=== PATIENT | female | born 2000 | race Caucasian/White ===

== ENCOUNTER 2021-01-27 19:34 | Emergency (ER) | payer OTHER, MEDICAID, SELFPAY ==
[2021-01-27 19:40] VITALS: PULSE 79; RESP 12; TEMP 36.4; O2SAT 98; BMI 25.7
--- NOTE | 2021-01-27 19:44 | DI.RAD.S_ITS ---
PROCEDURE: XR TOE RT MIN 2V INDICATIONS: dropped vaccum on toe TECHNIQUE: 3 views of the right 2nd toe(s) acquired. COMPARISON: None. FINDINGS: Bones: No fractures or dislocations. No suspicious bony lesions. Soft tissues: No suspicious soft tissue densities. IMPRESSION: No fracture. No osseous lesion. If symptoms and/or clinical suspicion for pathology persists, further assessment with repeat radiographs (7-10 days) or advanced imaging (e.g. CT, MRI or bone scan) should be considered. Dictated by: Mariama Salmeron MD, PhD on 01/27/2021 at 20:03 Approved by: Mariama Salmeron MD, PhD on 01/27/2021 at 20:03
--- NOTE | 2021-01-27 20:33 | ED_ITS ---
HPI - Extremity Injury (Lower) General Chief Complaint: Extremity Injury, Lower Stated Complaint: RIGHT FOOT INJURY Time Seen by Provider: 01/27/21 20:33 Source: patient Mode of arrival: Ambulatory History of Present Illness HPI Narrative: Otherwise healthy 20-year-old woman dropped her vacuum mandrel cleaner on her right 2nd toe earlier today. There is a minor abrasion to the area with some ecchymosis and significant pain. She comes in for further evaluation Related Data Allergies Allergy/AdvReac Type Severity Reaction Status Date / Time No Known Drug Allergies Allergy Verified 01/27/21 19:44 Review of Systems Review of Systems Narrative: Remainder of complete review of systems is otherwise unremarkable except for that included in the HPI. Patient History Social History Smoking Status: Never smoker Smoking Status: Never smoker Substance Use Type: does not use Exam Narrative Exam Narrative: General: Alert appropriate in no acute distress Respiratory: Able to speak in full sentences, no obvious respiratory distress Skin: No obvious rashes, warm and dry Neurologic: Grossly intact no obvious asymmetries or abnormalities Psych: appropriate insight and affect, cooperative Extremity: Right 2nd toe with a minor abrasion over the nail bed nail base itself is unremarkable there is no obvious deformity, she is developing some ecchymosis around the area of injury Initial Vital Signs Initial Vital Signs: Vital Signs Temperature 97.6 F 01/27/21 19:40 Pulse Rate 79 01/27/21 19:40 Respiratory Rate 12 01/27/21 19:40 Pulse Oximetry 98 01/27/21 19:40 Course Orders Ordered: Discontinued Medications Bacitracin (Bacitracin Oint 0.9 Gm Pckt) 1 applic TOP NOW ONE Stop: 01/27/21 20:43 Bacitracin (Bacitracin Oint 0.9 Gm Pckt) 1 applic TOP NOW ONE Stop: 01/27/21 20:43 Vital Signs Vital signs: Vital Signs - 8 hr 01/27/21 19:40 Temperature 97.6 F Pulse Rate 79 Respiratory Rate 12 Pulse Oximetry 98 MDM - Extremity Injury (Lower) Medical Records Attestation: I reviewed the patient's medical records. Imaging Data X-ray toes: Radiologist's Impression: FINDINGS: Bones: No fractures or dislocations. No suspicious bony lesions. Soft tissues: No suspicious soft tissue densities. IMPRESSION: No fracture. No osseous lesion. If symptoms and/or clinical suspicion for pathology persists, further assessment with repeat radiographs (7-10 days) or advanced imaging (e.g. CT, MRI or bone scan) should be considered. Dictated by: Mariama Salmeron MD, PhD on 01/27/2021 at 20:03 [facility] Narrative Medical decision making narrative: 20-year-old woman with tenderness to the right 2nd toe after she dropped the vacuum mandrel cleaner on the toe. There is no bony injury. Abrasion is cleaned and dressed with bacitracin and a Band-Aid and that toe is jose-taped to the 3rd toe for comfort. Patient is safe for home discharge Discharge Plan Departure Patient Disposition: Home Clinical Impression: Contusion of toe of right foot Qualifiers: Encounter type: initial encounter Toe: lesser toe Damage to nail status: without damage Qualified Code(s): S90.121A - Contusion of right lesser toe(s) without damage to nail, initial encounter Instructions: DI for Toe Fracture Activity Restrictions/Additional Instructions: Thank you for coming in today Your toe is not broken however the treatment will be similar to that that you would do for a broken toe. Keep antibiotic ointment on the small abrasion over the top of the toe. Using 400 mg of ibuprofen (2 [id number] pills) and 1 Tylenol every 6 hours can be very helpful in controlling pain as well elevation and ice Jose-tape that toe to the 3rd toe for comfort If you seem to have worsening symptoms please feel free to return to the ER Stand Alone Forms: Work Release Note
== END 2021-01-27 21:28 | disposition home or self-care (01) ==
PROVIDERS: Emergency Provider Emergency Medicine
DX: S90.121A Contusion of right lesser toe(s) without damage to nail, initial encounter (principal); W22.8XXA Striking against or struck by other objects, initial encounter
CPT/HCPCS: 73660; 99283